=== PATIENT | male | born 1985 | race African-American/Black ===

== ENCOUNTER 2018-02-05 16:51 | Emergency (ER) | payer SELFPAY ==
[~2018-02-05] VITALS: Ht 182.9 cm; Wt 82.0 kg
[2018-02-05] MEDS ORDERED: CYCLOBENZAPRINE 10MG TABLET PO ONE ×2 (18:15→20:00)
[2018-02-05] MEDS ORDERED: HYDROCODONE/ACETAMINOPHEN 5/325MG TABLET PO ONE ×2 (18:15→20:00)
[2018-02-05] MEDS ORDERED: KETOROLAC 60MG/2ML VIAL IM ONE (19:00)
[2018-02-05 20:00] VITALS: BP 138/88
== END 2018-02-05 20:00 | disposition home or self-care (01) ==
LOC: ER 17:52
DX: M25.511 Pain in right shoulder (principal); X58.XXXA Exposure to other specified factors, initial encounter; Y93.89 Activity, other specified; Y92.89 Other specified places as the place of occurrence of the external cause; Y99.8 Other external cause status
CPT/HCPCS: 73030; 96372; 99284; J1885; Z7610